=== PATIENT | female | born 1980 | race Caucasian/White ===

== ENCOUNTER 2018-08-30 10:54 | Emergency (ER) | payer OTHER ==
[2018-08-30 11:21] VITALS: BP 129/82; PULSE 99; RESP 20; TEMP 98.2
--- NOTE | 2018-08-30 11:36 | ED ---
General Adult HPI - General Chief complaint: Extremity Injury, Upper Stated complaint: Hand Injury Time Seen by Provider: 08/30/18 11:24 Source: patient, RN notes reviewed Mode of arrival: ambulatory Limitations: no limitations - History of Present Illness Initial comments: Patient 38-year-old female presented to the emergency room today with a chief complaint of an injury to the right hand that occurred yesterday. She states she was playing around with her at home and oxygen in the shoulder and she's had pain to the right hand since. Does make to bruising around the third MCP joint. States was worse with movements or denies any other bites or symptoms. Patient denies any recent fever, chills, shortness of breath, chest pain, back pain, abdominal pain, nausea or vomiting, headaches or visual changes , or any other complaints. - Related Data Allergies Allergy/AdvReac Type Severity Reaction Status Date / Time aspirin Allergy Anaphylaxis Verified 08/30/18 11:21 Review of Systems ROS Statement: Those systems with pertinent positive or pertinent negative responses have been documented in the HPI. ROS Other: All systems not noted in ROS Statement are negative. Past Medical History Past Medical History: Thyroid Disorder History of Any Multi-Drug Resistant Organisms: None Reported Past Surgical History: Tubal Ligation Past Psychological History: Panic Disorder Smoking Status: Current every day smoker Past Alcohol Use History: Occasional Past Drug Use History: Marijuana General Exam - General Exam Comments Initial Comments: General: The patient is awake and alert, in no distress, and does not appear acutely ill. Neck: The neck is supple, there is no tenderness or JVD. Musculoskeletal: Patient does have bruising around the third MCP joint of the right hand. Locally tender in this area. No tenderness to the right wrist, right elbow. Radial pulse 2+. Patient shows good range of motion. Sensations intact. Cap refill less than 2 seconds. Neurological: A&O x 3. CN II-XII intact, There are no obvious motor or sensory deficits. Coordination appears grossly intact. Speech is normal. Skin: Skin is warm and dry and no rashes or lesions are noted. Psychiatric: Normal mood and affect. Limitations: no limitations Course Vital Signs 08/30/18 11:19 Temperature 98.2 F Pulse Rate 99 Respiratory 20 Rate Blood Pressure 129/82 O2 Sat by Pulse 99 Oximetry Medical Decision Making - Medical Decision Making X-ray reviewed negative for any acute fracture dislocation. Results were discussed with the patient. Patient will be advised to continue ice elevate the affected area and use ibuprofen for pain and follow-up in 7-10 days for repeat x-rays if symptoms persist. Disposition Clinical Impression: Hand contusion Disposition: HOME SELF-CARE Condition: Good Instructions: Contusion in Adults (ED) Additional Instructions: Please follow-up in 7-10 days for repeat x-rays if symptoms persist. Please continue to ice elevate the affected area at least 4 times daily for 20 minutes at a time. Please return to emergency room for any other concerns. Is patient prescribed a controlled substance at d/c from ED?: No Referrals: Robert Paiz MD [Primary Care Provider] - 1-2 days Time of Disposition: 11:57
--- NOTE | 2018-08-30 11:42 | XR ---
EXAMINATION TYPE: XR hand complete RT DATE OF EXAM: 08/30/2018 CLINICAL HISTORY: Hand pain after injury worse over third digit. TECHNIQUE: Frontal, lateral and oblique images of the right hand are obtained. COMPARISON: None. FINDINGS: There is no acute fracture/dislocation evident in the right hand. The joint spaces in the right hand appear within normal limits. The overlying soft tissue appears unremarkable. IMPRESSION: There is no acute fracture or dislocation in the right hand.
== END 2018-08-30 12:10 | disposition home or self-care (01) ==
LOC: EC 10:54
DX: S60.221A Contusion of right hand, initial encounter (principal); F17.200 Nicotine dependence, unspecified, uncomplicated; Z88.6 Allergy status to analgesic agent; X58.XXXA Exposure to other specified factors, initial encounter; Y93.89 Activity, other specified; Y92.009 Unspecified place in unspecified non-institutional (private) residence as the place of occurrence of the external cause
CPT/HCPCS: 99283